=== PATIENT | male | born 1980 | race Caucasian/White ===

== ENCOUNTER 2024-06-29 16:00 | Emergency (ER) | payer OTHER, SELFPAY ==
[2024-06-29 16:10] VITALS: BP 160/110; PULSE 90; RESP 20; TEMP 36.7; O2SAT 99
--- NOTE | 2024-06-29 16:15 | PC.NURSE ---
Pt reports not wanting to be seen anymore. Continues as a visitor in ED in [facility].
--- NOTE | 2024-06-29 16:20 | ED.EXTPRO ---
HPI - Extremity Problem General Chief complaint: Extremity Problem,Nontraumatic Stated complaint: L INGROWN TOENAIL PAIN Time Seen by Provider: 06/29/24 16:10 Focused HPI: Patient is a 44-year-old male who presents to the ER with complaints left toe pain and concerns for left toenail infection. He reports there is a small amount of drainage coming from his toenail that is reddish in color. Patient rates his pain is at a 4 to 5/10. He denies any history of diabetes, hypertension or any other medical history relevant this ER visit. Patient reports the pain started last night. He denies any calf tenderness lower extremity swelling, recent fevers. GENERAL: Well-appearing, well-nourished, and in no acute distress. HEAD: Normocephalic, atraumatic. CHEST: Clear to auscultation. ?No respiratory distress. HEART: Regular rate and rhythm.? NEURO: ?Alert and oriented x3. Patient screened in triage and initial orders placed.? ?Additional care and disposition to be based upon?diagnostic testing and treatment. Related Data Allergies Allergy/AdvReac Type Severity Reaction Status Date / Time No Known Allergies Allergy Verified 06/29/24 16:01 Course Vital Signs Vital signs: Vital Signs Temperature 36.7 C 06/29/24 16:10 Pulse Rate 90 06/29/24 16:10 Respiratory Rate 20 06/29/24 16:10 Blood Pressure 160/110 H 06/29/24 16:10 Pulse Oximetry 99 06/29/24 16:10 Oxygen Delivery Room Air 06/29/24 16:10 Temperature 36.7 C 06/29/24 16:10 Pulse Rate 90 06/29/24 16:10 Respiratory Rate 20 06/29/24 16:10 Blood Pressure 160/110 H 06/29/24 16:10 Pulse Oximetry 99 06/29/24 16:10 Oxygen Delivery Room Air 06/29/24 16:10 Discharge Plan Discharge Patient Language: Vietnamese Follow-up/Referrals: UNKNOWN,DOCTOR [Primary Care Provider] -
== END 2024-06-29 18:00 | disposition left against medical advice (07) ==
PROVIDERS: Emergency Provider Registered Nurse
DX: L60.0 Ingrowing nail (principal)
CPT/HCPCS: 99281

== ENCOUNTER 2024-07-11 17:03 | Emergency (ER) | payer OTHER, SELFPAY ==
[2024-07-11 17:16] VITALS: BP 147/100; PULSE 74; RESP 16; TEMP 36.4; O2SAT 100
--- NOTE | 2024-07-11 17:30 | ED_ITS ---
HPI - Male Genitourinary General Chief complaint: Urogenital-Male Stated complaint: Uti Symptoms Time Seen by Provider: 07/11/24 18:12 Source: patient and RN notes reviewed Mode of arrival: ambulatory Limitations: no limitations History of Present Illness HPI Narrative: 44-year-old male presents with concern for bilateral low back pain for 2 days. He denies any injury or trauma. He reports pain is worse when he is moving around standing from sitting, rolling over in bed. He denies dysuria, frequency, urgency, suprapubic pain, hematuria. He denies fever, aches, chills, sweats. He denies weakness in any extremity, perianal anesthesia, loss of bowel or bladder function MD Complaint: other (Low back pain) Related Data Home Medications ?Medication ?Instructions ?Recorded ?Confirmed ?Last Taken ?Type No Home Medications 07/11/24 07/11/24 Unknown History Allergies Allergy/AdvReac Type Severity Reaction Status Date / Time No Known Allergies Allergy Verified 07/11/24 17:47 Review of Systems Review of Systems: CONSTITUTIONAL: Denies malaise, chills, sweats, or fever. CARDIOVASCULAR: Denies chest pain, palpitations, or edema. RESPIRATORY: Denies cough or dyspnea. GASTROINTESTINAL: Denies abdominal pain, nausea, vomiting, diarrhea GENITOURINARY: Denies dysuria, frequency, urgency, suprapubic pressure. Denies flank pain or hematuria. SKIN: Denies rash or itching. MUSCULOSKELETAL: Reports bilateral low back pain. Denies myalgia. All systems reviewed & are unremarkable except as noted in HPI and below PMFSH Comments At time of signature, agree with nursing past medical, surgical, social and family history. There is no relevant family history pertinent to the presenting complaint Exam Narrative: GENERAL: Well-appearing, well-nourished, and in no acute distress. HEAD: Normocephalic, atraumatic. EYES: PERRLA and EOMI. NECK: Supple. No lymphadenopathy. CHEST: Clear to auscultation. No respiratory distress. HEART: Regular rate and rhythm. Distal pulses palpable and equal, cap refill <3 seconds ABDOMEN: Soft, nontender, nondistended, normal active bowel sounds, no palpable or pulsatile masses. No CVA tenderness MUSCULOSKELETAL: Normal range of motion and strength in all extremities; 5/5 strength with hip flexion and extension, dorsiflexion and extension, knee flexion and extension, plantar flexion and extension. Normal sensation in dermatomal distributions with sensitivity to light touch and pain. No midline back tenderness to palpation. No paraspinal tenderness. Transfers from lying to sitting to standing. SKIN: Warm, dry, no rash. No ecchymosis, erythema, open wounds to back. NEURO: No focal deficits. Alert and oriented x3. Reflexes intact. Normal gait. PSYCH: Normal mood and affect Course Course Emergency Course: Patient is aware of diagnosis, understands and agrees to treatment plan. Anticipatory guidance given. Patient agrees to follow-up as directed and is aware of reasons to seek care at the emergency department. Portions of this record may have been created with voice recognition software Level of Care: Express Care Visit Vital Signs Vital signs: Vital Signs Temperature 97.5 F L 07/11/24 17:16 Pulse Rate 74 07/11/24 17:16 Respiratory Rate 16 07/11/24 17:16 Blood Pressure 147/100 H 07/11/24 17:16 Pulse Oximetry 100 07/11/24 17:16 Temperature 97.5 F L 07/11/24 17:16 Pulse Rate 74 07/11/24 17:16 Respiratory Rate 16 07/11/24 17:16 Blood Pressure 147/100 H 07/11/24 17:16 Pulse Oximetry 100 07/11/24 17:16 Reviewed. MDM - Male Genitourinary MDM Narrative Medical decision making narrative: No risk factors or findings concerning for epidural abscess, diskitis, vertebral osteomyelitis, cord compression, cauda equina, vertebral fracture or bone malignancy, AAA, or pyelonephritis. Patient instructed to consider further imaging and workup through their primary care physician as an outpatient if symptoms persist. Critical Care Time Critical Care Time Critical Care Time: No Discharge Plan Discharge Clinical Impression: Nonspecific low back pain Patient Disposition: Home, Self-Care Condition: Stable Instructions: Acute Low Back Pain (ED) Additional Instructions: Please follow up with your Primary Care Doctor within 48-72 hours - call for an appointment. Walking and other gentle exercising several times a week has been shown to improve back pain; bed rest is not recommended. Take prednisone as directed, take muscle relaxers every 8 hours as needed for muscle spasm- do not drive or make any important decisions while on this medication for it can make you drowsy. You may apply heat or cold to the area as needed. If you experience any worsening pain, swelling, numbness, weakness please go to ER. Contact your doctor or go to the emergency department if you develop problems with bladder or bowel function, weakness or loss of feeling in one or both of your legs, or any other serious concerns. Patient Language: Maori Prescriptions: New cyclobenzaprine 10 mg tablet 10 mg PO TID PRN (Reason: muscle spasm) Qty: 20 0RF prednisone 20 mg tablet 40 mg PO DAILY 5 Days Qty: 10 0RF No Action No Home Medications Follow-up/Referrals: PHYSICIAN,BRIDGE [facility]ILDER [Primary Care Provider] - Time of Disposition: 18:20
[2024-07-11 17:41] LABS: EDUAAPPEAR Clear; EDUABILI Negative (Negative); EDUABLOOD Negative (Negative); EDUACOLOR1 Yellow; EDUAGLUCOSE Negative (Negative); EDUAKETONE Negative (Negative); EDUALEUKO Negative (Negative); EDUANITRATE Negative (Negative); EDUAPH 6.5; EDUAPROTEIN Negative (Negative); EDUAUROBILI 0.2
== END 2024-07-11 18:23 | disposition home or self-care (01) ==
PROVIDERS: Emergency Provider Nurse Practitioner
DX: M54.50 Low back pain, unspecified (principal)
CPT/HCPCS: 81003; 99213; G0463